=== PATIENT | female | born 1955 | race Caucasian/White ===

== ENCOUNTER 2019-08-02 00:55 | Inpatient (IN) | payer MEDICARE, MEDICAID ==
[2019-08-02] VITALS (7 sets, daily range): BP systolic 148–183; BP diastolic 82–99
[~2019-08-02] VITALS: Ht 170.2 cm; Wt 90.0 kg
[2019-08-02 06:33] LABS: Basophils # (auto) 0.1 10 ^3/uL (0-0.2); Basophils % (auto) 1.5 % (0.0-2.0); Eosinophils # (auto) 0 10 ^3/uL (0-0.8); Eosinophils % (auto) 0.1 % (0.0-7.0); Hematocrit 35.5 % (36.0-46.0); Hemoglobin 11.7 g/dL (12.2-16.2); Lymphocytes % (auto) 16.6 % (10.0-50.0); Mean Corpuscular Hemoglobin 28.6 pg (28.0-32.0); Mean Corpuscular Hgb Conc. 32.9 g/dL (32.0-36.0); Mean Corpuscular Volume 86.8 fL (80.0-100.0); Monocytes # (auto) 0.5 10 ^3/uL (0-1.3); Monocytes % (auto) 8.5 % (0.0-12.0); Neutrophils # (auto) 4.3 10 ^3/uL (1.6-8.6); Neutrophils % (auto) 73.3 % (37.0-80.0); Platelet Count (auto) 318 10^3/uL (140-450); Red Blood Cells 4.09 10^6/uL (4.0-5.20); Red Cell Distribution Width 17.2 % (11.8-14.3); White Blood Cell 5.8 10^3/uL (4.4-10.8)
[2019-08-02 06:49] LABS: INR 1.33 (0.9-1.15); Partial Thromboplastin Time 27.5 sec (23.64-32.05)
[2019-08-02 07:05] LABS: Albumin 2.5 g/dL (3.4-5.0); BUN/Creatinine Ratio 14.5; Calcium 7.9 mg/dL (8.5-10.1)
[2019-08-02 07:06] LABS: Bilirubin, Total 0.6 mg/dL (0.2-1.0)
[2019-08-02 07:14] LABS: Potassium 2.8 mmol/L (3.5-5.1)
[2019-08-02] MEDS ORDERED: POTASSIUM EFFERVESENT TAB 25 MEQ PO ONE (07:15)
[2019-08-02] MEDS: SODIUM CHLORIDE 0.9% 1,000 ML IV SCH (07:50)
[2019-08-02] MEDS ORDERED: ALBUTEROL SULF 2.5 MG/0.5ML(0.5%) NEB SOLN NEB PRN (08:00)
[2019-08-02] MEDS ORDERED: HYDROcodone-ACET 5/325MG TAB PO PRN (08:00)
[2019-08-02] MEDS ORDERED: IPRATROPIUM BROM 0.5 MG/2.5ML INH SOL NEB PRN (08:00)
[2019-08-02] MEDS ORDERED: hydrALAZINE HCL 25 MG TAB PO PRN (08:00)
[2019-08-02] MEDS ORDERED: MORPHINE SULFATE 4 MG/ML SYR/VIAL IV PRN (08:00)
[2019-08-02] MEDS ORDERED: ONDANSETRON HCL 4 MG/2 ML VIAL IV PRN (08:00)
[2019-08-02] MEDS ORDERED: IOHEXOL 350 MG/ML 100ML IJ ONE (08:29)
[2019-08-02] MEDS ORDERED: ENOXAPARIN SOD 100 MG/1 ML SYRINGE SC SCH (10:00)
[2019-08-02] MEDS ORDERED: METO25TA93 (11:49)
[2019-08-02] MEDS ORDERED: LISI40TA PO ×2 (11:49→13:11)
[2019-08-02] MEDS ORDERED: UMEC1INH (11:49)
[2019-08-02] MEDS ORDERED: LISI-275 (11:49)
[2019-08-02] MEDS ORDERED: ALB5IS NEB (11:49)
[2019-08-02] MEDS ORDERED: AMLO10TA13 (11:49)
[2019-08-02] MEDS ORDERED: PANT40T (11:49)
[2019-08-02] MEDS ORDERED: GABA300C10 (11:49)
[2019-08-02] MEDS ORDERED: OXY5T (11:49)
[2019-08-02] MEDS ORDERED: FURO40TA4 (11:49)
[2019-08-02] MEDS ORDERED: ATOR1TAB (11:49)
[2019-08-02] MEDS ORDERED: ALBUAER3 (11:49)
[2019-08-02] MEDS ORDERED: SPIR25TA8 (11:49)
[2019-08-02] MEDS ORDERED: ASPI81CH4 (11:49)
[2019-08-02] MEDS ORDERED: FLUO40CA (11:49)
[2019-08-02] MEDS: IPRATROPIUM BROM 0.5 MG/2.5ML INH SOL NEB SCH ×2 (11:50→19:18)
[2019-08-02] MEDS: ALBUTEROL SULF 2.5 MG/0.5ML(0.5%) NEB SOLN NEB SCH ×2 (11:50→19:18)
[2019-08-02] MEDS ORDERED: METO25TA93 PO (13:11)
[2019-08-02] MEDS ORDERED: FLUO-125 PO (13:11)
[2019-08-02] MEDS ORDERED: FURO40TA4 PO (13:11)
[2019-08-02] MEDS ORDERED: PANT40TA2 PO (13:11)
[2019-08-02] MEDS ORDERED: ASPI-404 PO (13:11)
[2019-08-02] MEDS ORDERED: ATOR1TAB PO (13:11)
[2019-08-02] MEDS ORDERED: UMEC1INH IN (13:11)
[2019-08-02] MEDS ORDERED: AML5T PO (13:11)
[2019-08-02] MEDS ORDERED: KETO2CRE4 TOP (13:11)
[2019-08-02] MEDS ORDERED: SPIR25TA8 PO (13:11)
[2019-08-02] MEDS ORDERED: GABA300C10 PO (13:11)
[2019-08-02] MEDS ORDERED: OXY5T PO (13:11)
[2019-08-02] MEDS ORDERED: POM PO (13:11)
[2019-08-02] MEDS ORDERED: LISINOPRIL 20 MG TAB PO ONE (13:15)
[2019-08-02] MEDS ORDERED: amLODIPine BESYLATE 5 MG TAB PO ONE (13:15)
[2019-08-02] MEDS ORDERED: METOPROLOL SUCCINATE XL 50 MG TAB PO ONE (13:15)
[2019-08-02] MEDS ORDERED: SPIRONOLACTONE 25 MG TAB PO ONE (13:15)
[2019-08-02] MEDS ORDERED: cloNIDine HCL 0.1 MG TAB PO PRN (17:30)
[2019-08-02] MEDS ORDERED: VANCOMYCIN PER PHARMACY 0 MG IV SCH (17:45)
[2019-08-02] MEDS ORDERED: cefTRIAXone 1GM/50ML D5W 50 ML IV ONE (17:45)
[2019-08-02] MEDS: Ensure HIGH Protein Chocolate 8oz Bottle PO SCH (18:00)
[2019-08-02] MEDS: VANCOMYCIN 1GM/250ML 250 ML IV SCH (20:21)
[2019-08-02] MEDS: GABAPENTIN 300 MG CAP PO SCH (21:36)
[2019-08-02] MEDS: APIXABAN 5 MG TAB PO SCH (21:37)
[2019-08-02] MEDS: ACETAMINOPHEN 325 MG TAB PO PRN (21:38)
[2019-08-03] MEDS: SODIUM CHLORIDE 0.9% 1,000 ML IV SCH ×2 (00:14→17:10)
[2019-08-03 05:00] VITALS: BP 166/99
[2019-08-03 06:12] LABS: Basophils # (auto) 0.1 10 ^3/uL (0-0.2); Basophils % (auto) 0.9 % (0.0-2.0); Eosinophils # (auto) 0 10 ^3/uL (0-0.8); Eosinophils % (auto) 0.2 % (0.0-7.0); Hematocrit 39.2 % (36.0-46.0); Hemoglobin 12.6 g/dL (12.2-16.2); Lymphocytes % (auto) 18.3 % (10.0-50.0); Mean Corpuscular Hemoglobin 27.8 pg (28.0-32.0); Mean Corpuscular Hgb Conc. 32.3 g/dL (32.0-36.0); Mean Corpuscular Volume 86.2 fL (80.0-100.0); Monocytes # (auto) 0.6 10 ^3/uL (0-1.3); Monocytes % (auto) 10.7 % (0.0-12.0); Neutrophils % (auto) 69.9 % (37.0-80.0); Platelet Count (auto) 314 10^3/uL (140-450); Red Blood Cells 4.55 10^6/uL (4.0-5.20); Red Cell Distribution Width 17.3 % (11.8-14.3); White Blood Cell 5.7 10^3/uL (4.4-10.8)
[2019-08-03] MEDS: IPRATROPIUM BROM 0.5 MG/2.5ML INH SOL NEB SCH ×3 (06:30→18:55)
[2019-08-03] MEDS: ALBUTEROL SULF 2.5 MG/0.5ML(0.5%) NEB SOLN NEB SCH ×3 (06:30→18:55)
[2019-08-03 06:33] LABS: Calcium 8.3 mg/dL (8.5-10.1); Potassium 3.1 mmol/L (3.5-5.1)
[2019-08-03 06:35] LABS: BUN/Creatinine Ratio 11.7
[2019-08-03] MEDS: ACETAMINOPHEN 325 MG TAB PO PRN (06:40)
[2019-08-03] MEDS: Ensure HIGH Protein Chocolate 8oz Bottle PO SCH ×3 (08:00→18:10)
[2019-08-03 09:00] VITALS: BP 130/66
[2019-08-03] MEDS ORDERED: cefTRIAXone 1GM/50ML D5W 50 ML IV SCH (09:00)
[2019-08-03] MEDS: APIXABAN 5 MG TAB PO SCH (09:21)
[2019-08-03] MEDS: GABAPENTIN 300 MG CAP PO SCH (09:21)
[2019-08-03] MEDS: VANCOMYCIN 1GM/250ML 250 ML IV SCH (09:24)
[2019-08-03] MEDS ORDERED: FUROSEMIDE 40 MG TAB PO SCH (10:00)
[2019-08-03] MEDS ORDERED: LISINOPRIL 20 MG TAB PO SCH (10:00)
[2019-08-03] MEDS ORDERED: SPIRONOLACTONE 25 MG TAB PO SCH (10:00)
[2019-08-03] MEDS ORDERED: METOPROLOL SUCCINATE XL 50 MG TAB PO SCH (10:00)
[2019-08-03] MEDS ORDERED: FLUoxetine HCL 20 MG CAP PO SCH (10:00)
[2019-08-03] MEDS ORDERED: amLODIPine BESYLATE 5 MG TAB PO SCH (10:00)
[2019-08-03] MEDS ORDERED: POTASSIUM EFFERVESENT TAB 25 MEQ PO ONE (13:45)
[2019-08-03 16:53] VITALS: BP 130/66
[2019-08-03 17:00] VITALS: BP 116/77
[2019-08-03 20:00] VITALS: BP 116/77
[2019-08-09] MEDS ORDERED: APIXABAN 5 MG TAB PO SCH (22:00)
== END 2019-08-03 20:00 | disposition home or self-care (01) | DRG 299 ==
LOC: EDBD 00:55 → ER 01:09 → OVERFLOW 01:10 → WEST WING 09:43
PROVIDERS: ADMIT Hospitalist; ATTEND Hospitalist
DX: I82.431 Acute embolism and thrombosis of right popliteal vein (principal); J69.0 Pneumonitis due to inhalation of food and vomit; E44.0 Moderate protein-calorie malnutrition; L97.429 Non-pressure chronic ulcer of left heel and midfoot with unspecified severity; I10 Essential (primary) hypertension; J44.9 Chronic obstructive pulmonary disease, unspecified; E87.6 Hypokalemia; E66.01 Morbid (severe) obesity due to excess calories; E78.5 Hyperlipidemia, unspecified; K21.9 Gastro-esophageal reflux disease without esophagitis; Z87.891 Personal history of nicotine dependence; Z79.899 Other long term (current) drug therapy; Z87.440 Personal history of urinary (tract) infections; Z68.30 Body mass index [BMI] 30.0-30.9, adult
CPT/HCPCS: 36415; 71275; 80048; 80053; 84484; 85025; 85379; 85610; 85730; 87040; 87081; 93970; 94640; 96360; 96372; G0378; J0696